=== PATIENT | female | born 1930 | race Caucasian/White ===

== ENCOUNTER 2018-01-25 17:01 | Emergency (ER) | payer MEDICARE, OTHER ==
--- NOTE | 2018-01-25 18:21 | EDM.PDOC ---
ED HPI GENERAL MEDICAL PROBLEM - General Chief Complaint: Respiratory Problem Stated Complaint: SOB Time Seen by Provider: 01/25/18 18:05 Source of Information: Reports: Patient, Family, Old Records History Limitations: Reports: No Limitations - History of Present Illness INITIAL COMMENTS - FREE TEXT/NARRATIVE: 87 yo female began with cough and chest congestion this past Sunday that has gotten worse since. No fever. Cough is non-productive. Has no hx of any lung dz. Did not try to get into the clinic for this. Had a CXR on Sunday of this week for other reasons. Here with family. Onset: Gradual Onset Date: 01/23/18 Duration: Day(s):, Getting Worse Location: Reports: Chest Quality: Reports: Other (no pain) Severity: Moderate Improves with: Reports: Rest Worsens with: Reports: Movement (or lying down) Context: Reports: Other (uncertain) Associated Symptoms: Reports: Cough, Shortness of Breath, Weakness. 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) - Related Data Allergies Allergy/AdvReac Type Severity Reaction Status Date / Time egg AdvReac Weakness Verified 01/25/18 17:06 gluten AdvReac Diarrhea Verified 01/25/18 17:06 Penicillins AdvReac Diarrhea Verified 01/25/18 17:06 Home Meds: Home Meds Digoxin [Lanoxin] 125 mcg PO DAILY 06/23/14 [History] Losartan Potassium 100 mg PO DAILY 06/23/14 [History] Nebivolol HCl [Bystolic] 40 mg PO DAILY 06/23/14 [History] Azithromycin [IJP: Azithromycin] 250 mg PO DAILY #4 tab 01/25/18 [Rx] Doxazosin Mesylate [Cardura] 16 mg PO DAILY 01/25/18 [History] Furosemide [Furosemide] 20 mg PO DAILY 01/25/18 [History] Latanoprost [Xalatan 0.005% Ophth Soln] 1 drop EYEBOTH BEDTIME 01/25/18 [History ] MV-Mn/Iron/FA/Herbal Cmplx#190 [Vitamin D3 Complete Caplet] 1 tab PO DAILY 01/25 [History] Mirabegron [Myrbetriq] 50 mg PO DAILY 01/25/18 [History] Spironolactone [Aldactone] 25 mg PO DAILY 01/25/18 [History] Vitamin E (Dl,Tocopheryl Acet) [Vitamin E] 200 unit PO DAILY 01/25/18 [History] Warfarin [Coumadin] 5 mg PO ASDIRECTED 01/25/18 [History] Warfarin [Coumadin] 7.5 mg PO ASDIRECTED 01/25/18 [History] amLODIPine Besylate [Amlodipine Besylate] 10 mg PO DAILY 01/25/18 [History] hydrALAZINE [Apresoline] 25 - 50 mg PO TID #30 tab 01/25/18 [Rx] Past Medical History HEENT History: Reports: Cataract, Glaucoma, Hard of Hearing Cardiovascular History: Reports: Afib, Heart Failure, Hypertension, SOB on Exertion Respiratory History: Reports: Pneumonia, Recurrent 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: - Infectious Disease History Infectious Disease History: Reports: Chicken Pox - Past Surgical History HEENT Surgical History: Reports: Cataract Surgery GI Surgical History: Reports: Colonoscopy Social & Family History - Tobacco Use Smoking Status *Q: Former Smoker Years of Tobacco use: 40 Used Tobacco, but Quit: Yes Month/Year Tobacco Last Used: 10 Second Hand Smoke Exposure: No - Caffeine Use Caffeine Use: Reports: Coffee - Alcohol Use Days Per Week of Alcohol Use: 0 - Recreational Drug Use Recreational Drug Use: No ED ROS GENERAL - Review of Systems Review Of Systems: See Below Constitutional: Reports: Weakness HEENT: Reports: No Symptoms Respiratory: Reports: Shortness of Breath, Cough, Sputum (rare). Denies: Wheezing, Pleuritic Chest Pain, Hemoptysis Cardiovascular: Reports: No Symptoms GI/Abdominal: Reports: No Symptoms : Reports: No Symptoms Musculoskeletal: Reports: No Symptoms Skin: Reports: No Symptoms Neurological: Reports: No Symptoms Psychiatric: Reports: No Symptoms ED EXAM, GENERAL - Physical Exam Exam: See Below Exam Limited By: No Limitations General Appearance: Alert, WD/WN, No Apparent Distress, Thin Eye Exam: Bilateral Eye: Normal Inspection Ears: Hearing Loss, Other (Bilateral hearing aids) Ear Exam: Bilateral Ear: Auricle Normal Nose: Normal Inspection, Normal Mucosa, No Blood Throat/Mouth: Normal Inspection, Normal Lips, Normal Teeth, Normal Oropharynx, Normal Voice, No Airway Compromise Head: Atraumatic, Normocephalic Neck: Normal Inspection, Supple, Non-Tender Respiratory/Chest: No Respiratory Distress, No Accessory Muscle Use, Rhonchi ( scattered). No: Decreased Breath Sounds, Wheezing, Accessory Muscle Use, Retractions, Splinting, Prolonged Expiration Cardiovascular: Regular Rate, Rhythm, No Edema GI/Abdominal: Normal Bowel Sounds, Soft, Non-Tender, No Distention Back Exam: Normal Inspection. No: CVA Tenderness (R), CVA Tenderness (L) Extremities: Normal Inspection, Normal Range of Motion, Non-Tender, Pedal Edema (trace pitting edema to both legs below the knees) Neurological: Alert, Oriented, CN II-XII Intact, Normal Cognition, No Motor/ Sensory Deficits Psychiatric: Normal Affect, Normal Mood Skin Exam: Warm, Dry, Intact, Normal Color, No Rash Course - Vital Signs Text/Narrative:: Is improved enough with tx here in the ER that she wants to go home. Discussed needs an ECHO and may benefit from home oxygen which can't be set up tonight. Last Recorded V/S: Last Vital Signs Temp 37.2 C 01/25/18 17:31 Pulse 77 01/25/18 20:10 Resp 20 01/25/18 17:31 BP 179/74 H 01/25/18 20:10 Pulse Ox 90 L 01/25/18 20:10 - Orders/Labs/Meds Orders: Active Orders 24 hr Category Date Time Status Chest 2V [CR] Stat Exams 01/25/18 18:15 Taken Labs: Laboratory Tests 01/25/18 01/25/18 01/25/18 Range/Units 18:24 18:24 18:24 WBC 9.7 (4.5-11.0) K/uL RBC 3.73 (3.30-5.50) M/uL Hgb 11.3 L (12.0-15.0) g/dL Hct 34.0 L (36.0-48.0) % MCV 91 (80-98) fL MCH 30 (27-31) pg MCHC 33 (32-36) % Plt Count 261 (150-400) K/uL PT 31.5 H (9.5-12.0) sec INR 2.82 H (0.80-1.20) Sodium 128 L (140-148) mmol/L Potassium 4.7 (3.6-5.2) mmol/L Chloride 93 L (100-108) mmol/L Carbon Dioxide 26 (21-32) mmol/L Anion Gap 13.7 (5.0-14.0) mmol/L BUN 14 (7-18) mg/dL Creatinine 0.8 (0.6-1.0) mg/dL Est Cr Clr Drug Dosing 41.97 mL/min Estimated GFR (MDRD) > 60 (>60) Glucose 112 H (74-106) mg/dL Calcium 8.6 (8.5-10.1) mg/dL C-Reactive Protein (0.0-0.3) mg/dL NT-Pro-B Natriuret Pep (5-450) pg/mL Urine Color Urine Appearance Urine pH (4.5-8.0) Ur Specific [place] (1.008-1.030) Urine Protein (NEGATIVE) mg/dL Urine Glucose (UA) (NEGATIVE) mg/dL Urine Ketones (NEGATIVE) mg/dL Urine Occult Blood (NEGATIVE) Urine Nitrite (NEGATIVE) Urine Bilirubin (NEGATIVE) Urine Urobilinogen (NORMAL) mg/dL Ur Leukocyte Esterase (NEGATIVE) Urine RBC (0-5) Urine WBC (0-5) Ur Epithelial Cells Amorphous Sediment Urine Bacteria Urine Mucus 01/25/18 01/25/18 01/25/18 Range/Units 18:53 18:55 19:26 WBC (4.5-11.0) K/uL RBC (3.30-5.50) M/uL Hgb (12.0-15.0) g/dL Hct (36.0-48.0) % MCV (80-98) fL MCH (27-31) pg MCHC (32-36) % Plt Count (150-400) K/uL PT (9.5-12.0) sec INR (0.80-1.20) Sodium (140-148) mmol/L Potassium (3.6-5.2) mmol/L Chloride (100-108) mmol/L Carbon Dioxide (21-32) mmol/L Anion Gap (5.0-14.0) mmol/L BUN (7-18) mg/dL Creatinine (0.6-1.0) mg/dL Est Cr Clr Drug Dosing mL/min Estimated GFR (MDRD) (>60) Glucose (74-106) mg/dL Calcium (8.5-10.1) mg/dL C-Reactive Protein 2.40 H (0.0-0.3) mg/dL NT-Pro-B Natriuret Pep 2424 H (5-450) pg/mL Urine Color Yellow Urine Appearance Clear Urine pH 5.0 (4.5-8.0) Ur Specific [place] 1.020 (1.008-1.030) Urine Protein 30 H (NEGATIVE) mg/dL Urine Glucose (UA) Normal (NEGATIVE) mg/dL Urine Ketones Negative (NEGATIVE) mg/dL Urine Occult Blood Negative (NEGATIVE) Urine Nitrite Negative (NEGATIVE) Urine Bilirubin Negative (NEGATIVE) Urine Urobilinogen Normal (NORMAL) mg/dL Ur Leukocyte Esterase Negative (NEGATIVE) Urine RBC 0-5 (0-5) Urine WBC 0-5 (0-5) Ur Epithelial Cells Rare Amorphous Sediment Not seen Urine Bacteria Not seen Urine Mucus Not seen Meds: Medications Discontinued Medications Generic Name Dose Route Start Last Admin Trade Name Freq PRN Reason Stop Dose Admin Azithromycin 500 mg 01/25/18 19:37 01/25/18 19:44 Zithromax PO 01/25/18 19:38 500 mg ONETIME ONE Administration Carvedilol 12.5 mg 01/25/18 18:59 01/25/18 19:11 Coreg PO 01/25/18 19:00 12.5 mg ONETIME ONE Administration Hydralazine HCl 25 mg 01/25/18 20:10 Apresoline PO 01/25/18 20:11 NOW STA Nitroglycerin 1 gm 01/25/18 18:57 01/25/18 19:10 Nitro-Bid 2% TOP 01/25/18 18:58 1 gm ONETIME ONE Administration - Radiology Interpretation Free Text/Narrative:: CXR-cardiomegaly, no significant change since 01/23/18. Departure - Departure Time of Disposition: 20:25 Disposition: Home, Self-Care 01 Condition: Fair Clinical Impression: Congestive heart failure Qualifiers: Heart failure type: systolic Heart failure chronicity: acute on chronic Qualified Code(s): I50.23 - Acute on chronic systolic (congestive) heart failure HTN (hypertension) Qualifiers: Hypertension type: essential hypertension Qualified Code(s): I10 - Essential ( primary) hypertension - Discharge Information Prescriptions: Azithromycin [IJP: Azithromycin] 250 mg PO DAILY #4 tab hydrALAZINE [Apresoline] 25 - 50 mg PO TID #30 tab Referrals: Waldo Barrientos Sr, MD [Primary Care Provider] - Forms: ED Department Discharge Additional Instructions: Add hydralazine 25 mg every 12 hrs for elevated BP. Continue your usual meds as before. If you BP remains over 160 systolic, then increase to every 8 hrs. Recheck with your doctor early next week, discuss need for an Echocardiogram. Avoid salt or salty foods. Take azithromycin as directed until gone for bronchitis. Return if worse in the interim. - My Orders Last 24 Hours: My Active Orders 01/25/18 18:15 Chest 2V [CR] Stat - Assessment/Plan Last 24 Hours: My Active Orders 01/25/18 18:15 Chest 2V [CR] Stat
[2018-01-25] MEDS ORDERED: Nitroglycerin 2% Oint 1 GM UD Packet TOP ONE (18:57)
[2018-01-25] MEDS ORDERED: Carvedilol 12.5 MG Tab PO ONE (18:59)
[2018-01-25] MEDS ORDERED: Azithromycin 250 MG Tab PO ONE (19:37)
[2018-01-25] MEDS ORDERED: hydrALAZINE 25 MG Tab PO STA (20:10)
--- NOTE | 2018-01-28 09:39 | CR ---
Moderate to advanced cardiomegaly stable. Lobulated right diaphragm. Emphysematous change. No focal c onsolidation. Blunting of the costophrenic angles indicating pleural thickening versus trace pleural effusions. Kyphosis of the thoracic spine with wedging of multiple vertebral bodies.
== END 2018-01-25 20:43 | disposition home or self-care (01) ==
LOC: JP.ED 17:01
DX: I11.0 Hypertensive heart disease with heart failure (principal); I50.23 Acute on chronic systolic (congestive) heart failure; Z91.012 Allergy to eggs; Z88.0 Allergy status to penicillin; Z79.899 Other long term (current) drug therapy; Z87.891 Personal history of nicotine dependence
CPT/HCPCS: 36415; 71046; 80048; 81001; 83880; 85027; 85610; 86140; 99285; A9270; 99284

== ENCOUNTER 2018-01-26 18:56 | Inpatient (IN) | payer MEDICARE, OTHER ==
[2018-01-26] MEDS ORDERED: Furosemide 40 MG/4 ML VIAL IVPUSH ONE (20:12)
[2018-01-26] MEDS ORDERED: Sodium Chloride 0.9% 10 ML Syringe FLUSH PRN (20:12)
--- NOTE | 2018-01-26 20:16 | EDM.PDOC ---
ED HPI GENERAL MEDICAL PROBLEM - General Chief Complaint: Respiratory Problem Stated Complaint: SHORTNESS OF BREATH Time Seen by Provider: 01/26/18 20:05 Source of Information: Reports: Patient, Old Records History Limitations: Reports: No Limitations - History of Present Illness INITIAL COMMENTS - FREE TEXT/NARRATIVE: 87 yo female was here last night for SOB secondary to CHF. Her BNP was elevated and her CXR showed stable cardiomegaly. She seemed last night to get some relief with nitrates and oxygen in the ER. She didn't want to stay over in the hospital yesterday and we were not able to send her home with oxygen. Today she is worse overall than she was yesterday and is willing to be admitted. She was sent home with an Rx for hydralazine which she has been taking and on return tonight her BP is improved. Onset: Gradual Onset Date: 01/23/18 Duration: Day(s):, Getting Worse Location: Reports: Chest Quality: Reports: Other (no pain) Severity: Moderate (SOB is her main complaint) Improves with: Reports: Rest Worsens with: Reports: Movement Context: Reports: Other (Has known CHF and is awaiting an outpatient ECHO) Associated Symptoms: Reports: Shortness of Breath. 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 ) chest discomfort Pain Score (Numeric/FACES): 5 Left Shoulder Pain Score (Numeric/FACES): 2 - Related Data Allergies Allergy/AdvReac Type Severity Reaction Status Date / Time egg AdvReac Weakness Verified 01/26/18 22:25 gluten AdvReac Diarrhea Verified 01/26/18 22:25 Penicillins AdvReac Diarrhea Verified 01/26/18 22:25 Home Meds: Home Meds Digoxin [Lanoxin] 125 mcg PO DAILY 06/23/14 [History] Losartan Potassium 100 mg PO DAILY 06/23/14 [History] Nebivolol HCl [Bystolic] 40 mg PO DAILY 06/23/14 [History] Azithromycin [IJP: Azithromycin] 250 mg PO DAILY #4 tab 01/25/18 [Rx] Doxazosin Mesylate [Cardura] 8 mg PO BID 01/25/18 [History] Furosemide [Furosemide] 20 mg PO DAILY 01/25/18 [History] Latanoprost [Xalatan 0.005% Ophth Soln] 1 drop EYEBOTH BEDTIME 01/25/18 [History ] MV-Mn/Iron/FA/Herbal Cmplx#190 [Vitamin D3 Complete Caplet] 1 tab PO DAILY 01/25 [History] Mirabegron [Myrbetriq] 50 mg PO DAILY 01/25/18 [History] Vitamin E (Dl,Tocopheryl Acet) [Vitamin E] 200 unit PO DAILY 01/25/18 [History] Warfarin [Coumadin] 5 mg PO ASDIRECTED 01/25/18 [History] Warfarin [Coumadin] 7.5 mg PO ASDIRECTED 01/25/18 [History] amLODIPine Besylate [Amlodipine Besylate] 10 mg PO DAILY 01/25/18 [History] hydrALAZINE [Apresoline] 25 - 50 mg PO TID #30 tab 01/25/18 [Rx] Carvedilol [Carvedilol] 3.125 mg PO DAILY 01/26/18 [History] Spironolactone [Aldactone] 25 mg PO DAILY 01/26/18 [History] Past Medical History HEENT History: Reports: Cataract, Glaucoma, Hard of Hearing Cardiovascular History: Reports: Afib, Heart Failure, Hypertension, SOB on Exertion Respiratory History: Reports: Pneumonia, 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: - Infectious Disease History Infectious Disease History: Reports: Chicken Pox - Past Surgical History HEENT Surgical History: Reports: Cataract Surgery GI Surgical History: Reports: Colonoscopy Social & Family History - Tobacco Use Smoking Status *Q: Never Smoker Years of Tobacco use: 40 Used Tobacco, but Quit: Yes Month/Year Tobacco Last Used: 10 Second Hand Smoke Exposure: No - Caffeine Use Caffeine Use: Reports: Coffee - Alcohol Use Days Per Week of Alcohol Use: 0 - Recreational Drug Use Recreational Drug Use: No ED ROS GENERAL - Review of Systems Review Of Systems: See Below Constitutional: Reports: Weakness HEENT: Reports: No Symptoms Respiratory: Reports: Shortness of Breath. Denies: Hemoptysis Cardiovascular: Reports: No Symptoms Endocrine: Reports: No Symptoms GI/Abdominal: Reports: No Symptoms : Reports: No Symptoms Musculoskeletal: Reports: No Symptoms Skin: Reports: No Symptoms Neurological: Reports: No Symptoms ED EXAM, GENERAL - Physical Exam Exam: See Below Exam Limited By: No Limitations General Appearance: Alert, WD/WN, Mild Distress Eye Exam: Bilateral Eye: Normal Inspection, Other (Is mostly blind bilat) Ears: Normal External Exam, Normal Canal, Hearing Grossly Normal, Hearing Loss Ear Exam: Bilateral Ear: Auricle Normal, Canal Normal Nose: Normal Inspection, Normal Mucosa, No Blood Throat/Mouth: Normal Inspection, Normal Lips, Normal Oropharynx, Normal Voice, No Airway Compromise Head: Atraumatic, Normocephalic Neck: Normal Inspection, Supple, Non-Tender Respiratory/Chest: Rales, Wheezing Cardiovascular: Regular Rate, Rhythm GI/Abdominal: Normal Bowel Sounds, Soft, Non-Tender, No Distention Back Exam: Normal Inspection Extremities: Pedal Edema Neurological: Alert, Oriented, CN II-XII Intact, Normal Cognition, No Motor/ Sensory Deficits Psychiatric: Normal Affect, Normal Mood Skin Exam: Warm, Dry, Intact, Normal Color, No Rash Lymphatic: No Adenopathy Course - Vital Signs Text/Narrative:: Feeling a lot better with the addition of oxygen. BP better tonight than last night after the addition of the hydralazine. Last Recorded V/S: Last Vital Signs Temp 36.7 C 01/26/18 19:28 Pulse 54 L 01/27/18 01:03 Resp 20 01/26/18 22:54 BP 138/72 01/27/18 01:03 Pulse Ox 85 L 01/26/18 22:54 - Orders/Labs/Meds Orders: Active Orders 24 hr Category Date Time Status Chest 1V Frontal [CR] Stat Exams 01/26/18 20:11 Taken Sodium Chloride 0.9% [Saline Flush] Med 01/26/18 20:12 Active 10 ml FLUSH ASDIRECTED PRN Saline Lock Insert [OM.PC] Routine Oth 01/26/18 20:12 Ordered Medication Orders Amlodipine Besylate (Norvasc) 5 mg PO DAILY [facility] Azithromycin (Zithromax) 250 mg PO QPM [facility] Carvedilol (Coreg) 1.5625 mg PO BIDMEALS [facility] Digoxin (Lanoxin) 125 mcg PO DAILY [facility] Doxazosin Mesylate (Cardura) 8 mg PO BID [facility] Furosemide (Lasix) 20 mg PO DAILY [facility] Hydralazine HCl (Apresoline) 25 mg PO TID [facility] Losartan Potassium (Cozaar) 100 mg PO DAILY [facility] Mirabegron (Myrbetriq) 50 mg PO DAILY [facility] Non-Formulary Medication (Warfarin [Coumadin]) 7.5 mg PO ASDIRECTED [facility] Sodium Chloride (Saline Flush) 10 ml FLUSH ASDIRECTED PRN PRN Reason: Keep Vein Open Last Admin: 01/26/18 20:52 Dose: 10 ml Spironolactone (Aldactone) 25 mg PO DAILY [facility] Warfarin Sodium (Coumadin) 5 mg PO ASDIRECTED [facility] Labs: Laboratory Tests 01/26/18 01/26/18 Range/Units 20:29 20:29 WBC 9.3 (4.5-11.0) K/uL RBC 3.65 (3.30-5.50) M/uL Hgb 11.3 L (12.0-15.0) g/dL Hct 33.2 L (36.0-48.0) % MCV 91 (80-98) fL MCH 31 (27-31) pg MCHC 34 (32-36) % Plt Count 253 (150-400) K/uL Sodium 127 L (140-148) mmol/L Potassium 4.6 (3.6-5.2) mmol/L Chloride 93 L (100-108) mmol/L Carbon Dioxide 24 (21-32) mmol/L Anion Gap 14.6 H (5.0-14.0) mmol/L BUN 20 H (7-18) mg/dL Creatinine 0.7 (0.6-1.0) mg/dL Est Cr Clr Drug Dosing 49.72 mL/min Estimated GFR (MDRD) > 60 (>60) Glucose 130 H (74-106) mg/dL Calcium 8.6 (8.5-10.1) mg/dL Troponin I < 0.017 (0.000-0.056) ng/mL Meds: Medications Generic Name Dose Route Start Last Admin Trade Name Freq PRN Reason Stop Dose Admin Amlodipine Besylate 5 mg 01/27/18 09:00 Norvasc PO DAILY [facility] Azithromycin 250 mg 01/27/18 17:00 Zithromax PO QPM [facility] Carvedilol 1.5625 mg 01/27/18 08:00 Coreg PO BIDMEALS [facility] Digoxin 125 mcg 01/27/18 09:00 Lanoxin PO DAILY [facility] Doxazosin Mesylate 8 mg 01/27/18 09:00 Cardura PO BID [facility] Furosemide 20 mg 01/27/18 09:00 Lasix PO DAILY [facility] Hydralazine HCl 25 mg 01/27/18 09:00 Apresoline PO TID [facility] Losartan Potassium 100 mg 01/27/18 09:00 Cozaar PO DAILY [facility] Mirabegron 50 mg 01/27/18 09:00 Myrbetriq PO DAILY [facility] Non-Formulary Medication 7.5 mg 01/26/18 23:00 Warfarin [Coumadin] PO ASDIRECTED [facility] Sodium Chloride 10 ml 01/26/18 20:12 01/26/18 20:52 Saline Flush FLUSH 10 ml ASDIRECTED PRN Administration Keep Vein Open Spironolactone 25 mg 01/27/18 09:00 Aldactone PO DAILY [facility] Warfarin Sodium 5 mg 01/26/18 23:00 Coumadin PO ASDIRECTED [facility] Discontinued Medications Generic Name Dose Route Start Last Admin Trade Name Freq PRN Reason Stop Dose Admin Carvedilol 3.125 mg 01/26/18 23:00 Coreg PO DAILY IV[facility] Carvedilol 0 mg 01/27/18 01:00 01/27/18 01:03 Coreg PO 01/27/18 01:01 1.562 mg ONETIME ONE Administration Furosemide 40 mg 01/26/18 20:12 01/26/18 20:42 Lasix IVPUSH 01/26/18 20:13 40 mg ONETIME ONE Administration - Radiology Interpretation Free Text/Narrative:: CXR-no significant interval change since yesterday. Departure - Departure Time of Disposition: 23:40 Disposition: Admitted As Inpatient 65 Condition: Fair Clinical Impression: Hypoxia, Hyponatremia Congestive heart failure (CHF) Qualifiers: Heart failure type: systolic Heart failure chronicity: acute on chronic Qualified Code(s): I50.23 - Acute on chronic systolic (congestive) heart failure Anemia Qualifiers: Anemia type: unspecified type Qualified Code(s): D64.9 - Anemia, unspecified - Discharge Information - My Orders Last 24 Hours: My Active Orders 01/26/18 20:11 Chest 1V Frontal [CR] Stat 01/26/18 20:12 Sodium Chloride 0.9% [Saline Flush] 10 ml FLUSH ASDIRECTED PRN Saline Lock Insert [OM.PC] Routine - Assessment/Plan Last 24 Hours: My Active Orders 01/26/18 20:11 Chest 1V Frontal [CR] Stat 01/26/18 20:12 Sodium Chloride 0.9% [Saline Flush] 10 ml FLUSH ASDIRECTED PRN Saline Lock Insert [OM.PC] Routine
[2018-01-26] MEDS ORDERED: Non-Formulary Medication 1 Each (Warfarin [Coumadin] 7.5 MG) PO SCH (23:00)
[2018-01-26] MEDS ORDERED: Carvedilol 3.125 MG Tab PO SCH (23:00)
--- NOTE | 2018-01-26 23:14 | PCM.HP ---
H&P History of Present Illness - General Date of Service: 01/26/18 Admit Problem/Dx: Admission Diagnosis/Problem Admission Diagnosis/Problem CHF, Congestive heart failure Source of Information: Patient, EMS Notes Reviewed, Family History Limitations: Reports: Respiratory Distress, Other (coughing) - History of Present Illness Initial Comments - Free Text/Narative: Begun having a cough and rattling in her chest 4 days ago and had shortness of breath which became worse when laying down. Said she felt better when sitting up in a chair. Onset of Symptoms: Reports: Gradual Associated Symptoms: Reports: Chest Pain, Cough, Weakness chest discomfort Pain Score (Numeric/FACES): 5 - Related Data Allergies/Adverse Reactions: Allergies Allergy/AdvReac Type Severity Reaction Status Date / Time egg AdvReac Weakness Verified 01/26/18 22:25 gluten AdvReac Diarrhea Verified 01/26/18 22:25 Penicillins AdvReac Diarrhea Verified 01/26/18 22:25 Home Medications: Home Meds Digoxin [Lanoxin] 125 mcg PO DAILY 06/23/14 [History] Losartan Potassium 100 mg PO DAILY 06/23/14 [History] Nebivolol HCl [Bystolic] 40 mg PO DAILY 06/23/14 [History] Azithromycin [IJP: Azithromycin] 250 mg PO DAILY #4 tab 01/25/18 [Rx] Doxazosin Mesylate [Cardura] 8 mg PO BID 01/25/18 [History] Furosemide [Furosemide] 20 mg PO DAILY 01/25/18 [History] Latanoprost [Xalatan 0.005% Oph Soln] 1 drop EYEBOTH BEDTIME 01/25/18 [History ] MV-Mn/Iron/FA/Herbal Cmplx#[id number] [Vitamin D3 Complete Caplet] 1 tab PO DAILY 01/25 [History] Mirabegron [Myrbetriq] 50 mg PO DAILY 01/25/18 [History] Vitamin E (Dl,Tocopheryl Acet) [Vitamin E] 200 unit PO DAILY 01/25/18 [History] Warfarin [Coumadin] 5 mg PO ASDIRECTED 01/25/18 [History] Warfarin [Coumadin] 7.5 mg PO ASDIRECTED 01/25/18 [History] amLODIPine Besylate [Amlodipine Besylate] 10 mg PO DAILY 01/25/18 [History] hydrALAZINE [Apresoline] 25 - 50 mg PO TID #30 tab 01/25/18 [Rx] Carvedilol [Carvedilol] 3.125 mg PO DAILY 01/26/18 [History] Spironolactone [Aldactone] 25 mg PO DAILY 01/26/18 [History] Past Medical History HEENT History: Reports: Cataract, Glaucoma, Hard of Hearing Cardiovascular History: Reports: Afib, Heart Failure, Hypertension, SOB on Exertion Respiratory History: Reports: Pneumonia, Recurrent [employer] History: Reports: - Infectious Disease History Infectious Disease History: Reports: Chicken Pox - Past Surgical History HEENT Surgical History: Reports: Cataract Surgery GI Surgical History: Reports: Colonoscopy Social & Family History - Tobacco Use Smoking Status *Q: Never Smoker Years of Tobacco use: 40 Used Tobacco, but Quit: Yes Month/Year Tobacco Last Used: 10 Second Hand Smoke Exposure: No - Caffeine Use Caffeine Use: Reports: Coffee - Alcohol Use Days Per Week of Alcohol Use: 0 - Recreational Drug Use Recreational Drug Use: No H&P Review of Systems - Review of Systems: Review Of Systems: See Below General: Reports: Weakness, Decreased Appetite HEENT: Reports: No Symptoms Pulmonary: Reports: Shortness of Breath, Wheezing Cardiovascular: Reports: Dyspnea on Exertion, Orthopnea Gastrointestinal: Reports: No Symptoms Genitourinary: Reports: Frequency, Incontinence Musculoskeletal: Reports: No Symptoms Psychiatric: Reports: No Symptoms Neurological: Reports: Weakness Exam - Exam Exam: See Below - Vital Signs Vital Signs: Last Vital Signs Temp 98.1 F 01/26/18 19:28 Pulse 60 01/26/18 22:27 Resp 16 01/26/18 22:27 BP 128/86 01/26/18 22:27 Pulse Ox 95 01/26/18 22:27 Weight: 125 lb - Exam General: Alert, Oriented, 4 Neck: Supple, Trachea Midline, 2 Lungs: Clear to Auscultation, Normal Respiratory Effort Cardiovascular: Regular Rate, Regular Rhythm GI/Abdominal Exam: Normal Bowel Sounds, Soft, Non-Tender, No Organomegaly, No Distention, No Abnormal Bruit, No Mass, Pelvis Stable Extremities: Normal Inspection, Normal Range of Motion, Non-Tender, No Pedal Edema, Normal Capillary Refill Skin: Warm, Dry, Intact Neuro Extensive - Motor, Sensory, Reflexes: CN II-XII Intact, Normal Gait, Normal Reflexes Psychiatric: Alert, Normal Affect, Normal Mood - Patient Data Lab Results Last 24 hrs: Laboratory Results - last 24 hr 01/26/18 01/26/18 Range/Units 20:29 20:29 WBC 9.3 (4.5-11.0) K/uL RBC 3.65 (3.30-5.50) M/uL Hgb 11.3 L (12.0-15.0) g/dL Hct 33.2 L (36.0-48.0) % MCV 91 (80-98) fL MCH 31 (27-31) pg MCHC 34 (32-36) % Plt Count 253 (150-400) K/uL Sodium 127 L (140-148) mmol/L Potassium 4.6 (3.6-5.2) mmol/L Chloride 93 L (100-108) mmol/L Carbon Dioxide 24 (21-32) mmol/L Anion Gap 14.6 H (5.0-14.0) mmol/L BUN 20 H (7-18) mg/dL Creatinine 0.7 (0.6-1.0) mg/dL Est Cr Clr Drug Dosing 49.72 mL/min Estimated GFR (MDRD) > 60 (>60) Glucose 130 H (74-106) mg/dL Calcium 8.6 (8.5-10.1) mg/dL Troponin I < 0.017 (0.000-0.056) ng/mL Result Diagrams: 01/26/18 20:29 01/26/18 20:29 *Q Meaningful Use (ADM) - VTE *Q VTE Criteria *Q: - Stroke *Q Stroke Criteria *Q: - AMI *Q AMI Criteria *Q: Problem List Initiated/Reviewed/Updated: Yes Orders Last 24hrs: Active Orders 24 hr Category Date Time Status Patient Status [ADT] Routine ADT 01/26/18 22:54 Ordered Cardiac Monitoring [RC] .As Directed Care 01/26/18 20:13 Active Cardiac Monitoring [RC] .As Directed Care 01/26/18 22:55 Ordered Height and Weight [RC] DAILY Care 01/26/18 22:48 Ordered Intake and Output [RC] QSHIFT Care 01/26/18 22:55 Ordered Oxygen Therapy Adult [Oxygen Therapy, ED] [RC] Care 01/26/18 20:13 Active ASDIRECTED Oxygen Therapy [RC] PRN Care 01/26/18 22:54 Ordered Up With Assistance [RC] ASDIRECTED Care 01/26/18 22:48 Ordered VTE/DVT Education [RC] Per Unit Routine Care 01/26/18 22:54 Ordered Vital Signs [RC] Q4H Care 01/26/18 22:54 Ordered Regular Diet [DIET] Diet 01/27/18 Breakfast Ordered Chest 1V Frontal [CR] Stat Exams 01/26/18 20:11 Taken Echo Comp w Cont [US] Routine Exams 01/28/18 23:02 Ordered BASIC METABOLIC PANEL,BMP [CHEM] Routine Lab 01/28/18 05:11 Ordered CBC WITH AUTO DIFF [HEME] Routine Lab 01/28/18 05:11 Ordered DIGOXIN [CHEM] Stat Lab 01/28/18 05:11 Ordered INR,PT,PROTHROMBIN TIME [COAG] Stat Lab 01/27/18 05:11 Ordered Azithromycin [Zithromax] Med 01/27/18 09:00 Ordered 250 mg PO DAILY Carvedilol [Coreg] Med 01/26/18 23:00 Ordered 3.125 mg PO DAILY Digoxin [Lanoxin] Med 01/27/18 09:00 Ordered 125 mcg PO DAILY Doxazosin Mesylate [Cardura] Med 01/27/18 09:00 Ordered 8 mg PO BID Furosemide [Lasix] Med 01/27/18 09:00 Ordered 20 mg PO DAILY Losartan Potassium [Losartan Potassium] Med 01/27/18 09:00 Ordered 100 mg PO DAILY Mirabegron [Myrbetriq] Med 01/27/18 09:00 Ordered 50 mg PO DAILY Sodium Chloride 0.9% [Saline Flush] Med 01/26/18 20:12 Active 10 ml FLUSH ASDIRECTED PRN Spironolactone [Aldactone] Med 01/27/18 09:00 Ordered 25 mg PO DAILY Warfarin [Coumadin] Med 01/26/18 23:00 Ordered 5 mg PO ASDIRECTED Warfarin [Coumadin] Med 01/26/18 23:00 Ordered 7.5 mg PO ASDIRECTED amLODIPine [Norvasc] Med 01/27/18 09:00 Ordered 5 mg PO DAILY hydrALAZINE [Apresoline] Med 01/27/18 09:00 Ordered 25 mg PO TID Saline Lock Insert [OM.PC] Routine Oth 01/26/18 20:12 Ordered Resuscitation Status Routine Resus Stat 01/26/18 22:48 Ordered Medication Orders Amlodipine Besylate (Norvasc) 5 mg PO DAILY [facility] Azithromycin (Zithromax) 250 mg PO DAILY [facility] Carvedilol (Coreg) 3.125 mg PO DAILY [facility] Digoxin (Lanoxin) 125 mcg PO DAILY [facility] Furosemide (Lasix) 20 mg PO DAILY [facility] Hydralazine HCl (Apresoline) 25 mg PO TID [facility] Non-Formulary Medication (Doxazosin Mesylate [Cardura]) 8 mg PO BID [facility] Non-Formulary Medication (Losartan Potassium [Losartan Potassium]) 100 mg PO DAILY [facility] Non-Formulary Medication (Mirabegron [Myrbetriq]) 50 mg PO DAILY [facility] Non-Formulary Medication (Warfarin [Coumadin]) 7.5 mg PO ASDIRECTED [facility] Sodium Chloride (Saline Flush) 10 ml FLUSH ASDIRECTED PRN PRN Reason: Keep Vein Open Last Admin: 01/26/18 20:52 Dose: 10 ml Spironolactone (Aldactone) 25 mg PO DAILY [facility] Warfarin Sodium (Coumadin) 5 mg PO ASDIRECTED [facility] Assessment/Plan Comment:: Assessment/Plan: #1. CHF: Will continue with med adjustment and get a echocardiogram Sunday to asses heart failure. #2. HTN: Will continue with med adjustment. #3. Blindness #4. Urinary incontance: Cont with med. #5. Atrial fib, Chronic.
[2018-01-27] MEDS ORDERED: Carvedilol 3.125 MG Tab PO ONE (01:00)
[2018-01-27] MEDS: Carvedilol 3.125 MG Tab PO SCH ×2 (09:48→16:46)
[2018-01-27] MEDS: Spironolactone 25 MG Tab PO SCH (09:50)
[2018-01-27] MEDS: Doxazosin 4 MG Tab PO SCH ×2 (09:51→20:22)
[2018-01-27] MEDS: hydrALAZINE 25 MG Tab PO SCH ×3 (09:51→20:23)
[2018-01-27] MEDS: Furosemide 20 MG Tab PO SCH (09:52)
[2018-01-27] MEDS: Mirabegron 25 MG Tab Extended Release PO SCH (09:52)
[2018-01-27] MEDS: Losartan 50 MG Tab PO SCH (09:52)
[2018-01-27] MEDS: amLODIPine 5 MG Tab PO SCH (09:53)
[2018-01-27] MEDS ORDERED: Albuterol 0.083% 2.5 MG/3 ML Neb Soln NEB PRN (10:21)
[2018-01-27] MEDS ORDERED: Warfarin 2.5 MG Tab PO SCH (13:00)
[2018-01-27] MEDS: Azithromycin 250 MG Tab PO SCH (16:46)
--- NOTE | 2018-01-27 21:02 | PCM.PN ---
- General Info Date of Service: 01/27/18 Functional Status: Reports: Pain Controlled - Review of Systems General: Reports: Weakness HEENT: Reports: No Symptoms Pulmonary: Reports: No Symptoms Cardiovascular: Reports: Dyspnea on Exertion Genitourinary: Reports: No Symptoms Musculoskeletal: Reports: No Symptoms Skin: Reports: No Symptoms Neurological: Reports: No Symptoms Psychiatric: Reports: No Symptoms - Patient Data Vitals - Most Recent: Last Vital Signs Temp 98 F 01/27/18 19:00 Pulse 61 01/27/18 19:00 Resp 16 01/27/18 19:00 BP 139/43 L 01/27/18 20:23 Pulse Ox 96 01/27/18 19:00 Weight - Most Recent: 125 lb I&O - Last 24 Hours: Intake & Output 01/27/18 01/27/18 01/27/18 06:59 14:59 22:59 Intake Total 486 Output Total 300 175 Balance -300 311 Lab Results Last 24 Hours: Laboratory Results - last 24 hr 01/27/18 Range/Units 05:30 PT 55.9 H (9.5-12.0) sec INR 4.89 H* D (0.80-1.20) Med Orders - Current: Current Medications Albuterol (Proventil Neb Soln) 2.5 mg NEB Q4H PRN PRN Reason: Shortness of Breath Last Admin: 01/27/18 10:44 Dose: 2.5 mg Amlodipine Besylate (Norvasc) 5 mg PO DAILY [facility] Last Admin: 01/27/18 09:53 Dose: 5 mg Azithromycin (Zithromax) 250 mg PO QPM [facility] Stop: 01/29/18 17:01 Last Admin: 01/27/18 16:46 Dose: 250 mg Carvedilol (Coreg) 1.5625 mg PO BIDMEALS [facility] Last Admin: 01/27/18 16:46 Dose: 1.5625 mg Digoxin (Lanoxin) 125 mcg PO DAILY@1300 [facility] Doxazosin Mesylate (Cardura) 8 mg PO BID [facility] Last Admin: 01/27/18 20:22 Dose: 8 mg Furosemide (Lasix) 20 mg PO DAILY [facility] Last Admin: 01/27/18 09:52 Dose: 20 mg Hydralazine HCl (Apresoline) 25 mg PO TID [facility] Last Admin: 01/27/18 20:23 Dose: 25 mg Losartan Potassium (Cozaar) 100 mg PO DAILY [facility] Last Admin: 01/27/18 09:52 Dose: 100 mg Mirabegron (Myrbetriq) 50 mg PO DAILY [facility] Last Admin: 01/27/18 09:52 Dose: 50 mg Sodium Chloride (Saline Flush) 10 ml FLUSH ASDIRECTED PRN PRN Reason: Keep Vein Open Last Admin: 01/26/18 20:52 Dose: 10 ml Spironolactone (Aldactone) 25 mg PO DAILY [facility] Last Admin: 01/27/18 09:50 Dose: 25 mg Warfarin Sodium (Coumadin) 5 mg PO Q72H [facility] Warfarin Sodium (Coumadin) 7.5 mg PO DAILY@1300 [facility] Discontinued Medications Carvedilol (Coreg) 3.125 mg PO DAILY [facility] Last Admin: 01/27/18 01:48 Dose: Not Given Carvedilol (Coreg) 0 mg PO ONETIME ONE Stop: 01/27/18 01:01 Last Admin: 01/27/18 01:03 Dose: 1.562 mg Furosemide (Lasix) 40 mg IVPUSH ONETIME ONE Stop: 01/26/18 20:13 Last Admin: 01/26/18 20:42 Dose: 40 mg - Exam General: Alert, Oriented Neck: Supple Lungs: Normal Respiratory Effort Cardiovascular: Irregular Rhythm GI/Abdominal Exam: Normal Bowel Sounds, Soft Extremities: Normal Inspection Peripheral Pulses: 1+: Radial (L), Radial (R) Psy/Mental Status: Alert, Normal Affect, Normal Mood - Problem List Review Problem List Initiated/Reviewed/Updated: Yes - My Orders Last 24 Hours: My Active Orders 01/26/18 23:29 Physical Therapy Screening [PT Screening] [OM.PC] Routine 01/27/18 08:00 Carvedilol [Coreg] 1.5625 mg PO BIDMEALS 01/27/18 09:00 Doxazosin [Cardura] 8 mg PO BID Furosemide [Lasix] 20 mg PO DAILY Losartan [Cozaar] 100 mg PO DAILY Mirabegron [Myrbetriq] 50 mg PO DAILY Spironolactone [Aldactone] 25 mg PO DAILY amLODIPine [Norvasc] 5 mg PO DAILY hydrALAZINE [Apresoline] 25 mg PO TID 01/27/18 10:21 RT Aerosol Therapy [RC] ASDIRECTED Albuterol [Proventil Neb Soln] 2.5 mg NEB Q4H PRN 01/27/18 13:00 Digoxin [Lanoxin] 125 mcg PO DAILY@1300 Warfarin [Coumadin] 7.5 mg PO DAILY@1300 01/27/18 17:00 Azithromycin [Zithromax] 250 mg PO QPM 01/28/18 05:00 INR,PT,PROTHROMBIN TIME [COAG] Routine 01/28/18 05:11 BASIC METABOLIC PANEL,BMP [CHEM] Routine CBC WITH AUTO DIFF [HEME] Routine DIGOXIN [CHEM] Stat 01/28/18 23:02 Echo Comp w Cont [US] Routine 01/29/18 13:00 Warfarin [Coumadin] 5 mg PO Q72H - Plan Plan:: Assessment/Plan: #1. CHF: Will continue with med adjustment and get a echocardiogram tomorrow to asses heart failure. Held the Dig today as the pulse was low. PT evaluation tomorrow. Blood pending tomorrow. #2. HTN: Will continue with med adjustment. BP good control. #3. Blindness #4. Urinary incontance: Cont with med. #5. Atrial fib, Chronic.
[2018-01-28] MEDS: hydrALAZINE 25 MG Tab PO SCH ×3 (08:54→20:58)
[2018-01-28] MEDS: amLODIPine 5 MG Tab PO SCH (08:54)
[2018-01-28] MEDS: Losartan 50 MG Tab PO SCH (08:54)
[2018-01-28] MEDS: Spironolactone 25 MG Tab PO SCH (08:55)
[2018-01-28] MEDS: Doxazosin 4 MG Tab PO SCH ×2 (08:55→21:00)
[2018-01-28] MEDS: Mirabegron 25 MG Tab Extended Release PO SCH (08:55)
[2018-01-28] MEDS: Carvedilol 3.125 MG Tab PO SCH (08:56)
[2018-01-28] MEDS: Furosemide 20 MG Tab PO SCH (08:56)
--- NOTE | 2018-01-28 09:40 | CR ---
Cardiomegaly stable. Mild increase of interstitial thickening can indicate interstitial edema. Hospit al trace pleural effusion the left. No focal consolidation.
[2018-01-28] MEDS: Digoxin 125 MCG Tab PO SCH (15:06)
[2018-01-28] MEDS ORDERED: Furosemide 20 MG Tab PO ONE (16:00)
--- NOTE | 2018-01-28 17:45 | PCM.PN ---
- General Info Date of Service: 01/28/18 - Review of Systems General: Reports: Weakness, Fatigue Pulmonary: Reports: Shortness of Breath, Cough, Sputum Cardiovascular: Reports: No Symptoms Gastrointestinal: Reports: No Symptoms Genitourinary: Reports: No Symptoms Musculoskeletal: Reports: No Symptoms Skin: Reports: No Symptoms Neurological: Reports: Difficulty Walking, Weakness Psychiatric: Reports: No Symptoms - Patient Data Vitals - Most Recent: Last Vital Signs Temp 97.1 F 01/28/18 14:24 Pulse 75 01/28/18 14:24 Resp 20 01/28/18 14:24 BP 124/48 L 01/28/18 14:24 Pulse Ox 95 01/28/18 14:24 Weight - Most Recent: 127 lb 13.89 oz I&O - Last 24 Hours: Intake & Output 01/28/18 01/28/18 01/28/18 06:59 14:59 22:59 Output Total 500 400 Balance -500 -400 Lab Results Last 24 Hours: Laboratory Results - last 24 hr 01/28/18 01/28/18 01/28/18 Range/Units 05:45 05:45 05:45 WBC 7.3 (4.5-11.0) K/uL RBC 3.52 (3.30-5.50) M/uL Hgb 10.8 L (12.0-15.0) g/dL Hct 31.9 L (36.0-48.0) % MCV 91 (80-98) fL MCH 31 (27-31) pg MCHC 34 (32-36) % Plt Count 244 (150-400) K/uL Neut % (Auto) 69 H (36-66) % Lymph % (Auto) 18 L (24-44) % Glynn % (Auto) 12 H (2-6) % Eos % (Auto) 0 L (2-4) % Baso % (Auto) 0 (0-1) % PT (9.5-12.0) sec INR (0.80-1.20) Sodium 130 L (140-148) mmol/L Potassium 4.3 (3.6-5.2) mmol/L Chloride 96 L (100-108) mmol/L Carbon Dioxide 27 (21-32) mmol/L Anion Gap 11.3 (5.0-14.0) mmol/L BUN 19 H (7-18) mg/dL Creatinine 0.8 (0.6-1.0) mg/dL Est Cr Clr Drug Dosing 43.67 mL/min Estimated GFR (MDRD) > 60 (>60) Glucose 93 (74-106) mg/dL Calcium 8.0 L (8.5-10.1) mg/dL Digoxin 0.61 L (0.90-2.00) ng/mL 01/28/18 Range/Units 05:45 WBC (4.5-11.0) K/uL RBC (3.30-5.50) M/uL Hgb (12.0-15.0) g/dL Hct (36.0-48.0) % MCV (80-98) fL MCH (27-31) pg MCHC (32-36) % Plt Count (150-400) K/uL Neut % (Auto) (36-66) % Lymph % (Auto) (24-44) % Glynn % (Auto) (2-6) % Eos % (Auto) (2-4) % Baso % (Auto) (0-1) % PT 45.3 H (9.5-12.0) sec INR 4.00 H (0.80-1.20) Sodium (140-148) mmol/L Potassium (3.6-5.2) mmol/L Chloride (100-108) mmol/L Carbon Dioxide (21-32) mmol/L Anion Gap (5.0-14.0) mmol/L BUN (7-18) mg/dL Creatinine (0.6-1.0) mg/dL Est Cr Clr Drug Dosing mL/min Estimated GFR (MDRD) (>60) Glucose (74-106) mg/dL Calcium (8.5-10.1) mg/dL Digoxin (0.90-2.00) ng/mL Med Orders - Current: Current Medications Albuterol (Proventil Neb Soln) 2.5 mg NEB Q4H PRN PRN Reason: Shortness of Breath Last Admin: 01/27/18 10:44 Dose: 2.5 mg Amlodipine Besylate (Norvasc) 5 mg PO DAILY [facility] Last Admin: 01/28/18 08:54 Dose: 5 mg Digoxin (Lanoxin) 125 mcg PO DAILY@1300 [facility] Last Admin: 01/28/18 15:06 Dose: Not Given Doxazosin Mesylate (Cardura) 8 mg PO BID [facility] Last Admin: 01/28/18 08:55 Dose: 8 mg Furosemide (Lasix) 20 mg PO DAILY [facility] Last Admin: 01/28/18 08:56 Dose: 20 mg Hydralazine HCl (Apresoline) 25 mg PO TID [facility] Last Admin: 01/28/18 15:23 Dose: Not Given Levofloxacin/Dextrose 500 mg/ (Premix) 100 mls @ 100 mls/hr IV Q24H [facility] Ceftriaxone Sodium 1 gm/ (Sodium Chloride) 50 mls @ 100 mls/hr IV Q24H [facility] Losartan Potassium (Cozaar) 100 mg PO DAILY [facility] Last Admin: 01/28/18 08:54 Dose: 100 mg Mirabegron (Myrbetriq) 50 mg PO DAILY [facility] Last Admin: 01/28/18 08:55 Dose: 50 mg Sodium Chloride (Saline Flush) 10 ml FLUSH ASDIRECTED PRN PRN Reason: Keep Vein Open Last Admin: 01/26/18 20:52 Dose: 10 ml Spironolactone (Aldactone) 25 mg PO DAILY [facility] Last Admin: 01/28/18 08:55 Dose: 25 mg Warfarin Sodium (Coumadin) 5 mg PO Q72H [facility] Warfarin Sodium (Coumadin) 7.5 mg PO DAILY@1300 [facility] Discontinued Medications Azithromycin (Zithromax) 250 mg PO QPM [facility] Stop: 01/29/18 17:01 Last Admin: 01/27/18 16:46 Dose: 250 mg Carvedilol (Coreg) 3.125 mg PO DAILY [facility] Last Admin: 01/27/18 01:48 Dose: Not Given Carvedilol (Coreg) 0 mg PO ONETIME ONE Stop: 01/27/18 01:01 Last Admin: 01/27/18 01:03 Dose: 1.562 mg Carvedilol (Coreg) 1.5625 mg PO BIDMEALS [facility] Last Admin: 01/28/18 08:56 Dose: 1.5625 mg Furosemide (Lasix) 40 mg IVPUSH ONETIME ONE Stop: 01/26/18 20:13 Last Admin: 01/26/18 20:42 Dose: 40 mg Furosemide (Lasix) 20 mg PO ONETIME ONE Stop: 01/28/18 16:01 Last Admin: 01/28/18 15:42 Dose: 20 mg - Exam General: Alert, Oriented HEENT: Pupils Equal, Pupils Reactive, EOMI, Mucous Membr. Moist/[place] Lungs: Decreased Breath Sounds, Wheezing Cardiovascular: Irregular Rhythm GI/Abdominal Exam: Normal Bowel Sounds, Soft, Non-Tender, No Organomegaly, No Distention, No Abnormal Bruit, No Mass, Pelvis Stable Extremities: Normal Inspection, Normal Range of Motion, Non-Tender, No Pedal Edema, Normal Capillary Refill Peripheral Pulses: 1+: Radial (L), Radial (R) Skin: Warm, Dry, Intact Psy/Mental Status: Alert, Normal Affect, Normal Mood - Problem List Review Problem List Initiated/Reviewed/Updated: Yes - My Orders Last 24 Hours: My Active Orders 01/28/18 08:21 Consult to Physical Therapy [PT Evaluation and Treatment] [CONS] Routine 01/28/18 10:28 RT Evaluate for Home Oxygen [RC] Click to Edit 01/28/18 17:39 RT Sputum Induction [RC] Click to Edit 01/28/18 17:45 Levofloxacin/Dextrose 5%-Water [Levaquin in D5W 500 MG/100 ML] 500 mg Premix Bag 1 bag IV Q24H cefTRIAXone [Rocephin] 1 gm Sodium Chloride 0.9% [Normal Saline] 50 ml IV Q24H 01/28/18 23:02 Echo Comp w Cont [US] Routine 01/29/18 13:00 Warfarin [Coumadin] 5 mg PO Q72H - Plan Plan:: Assessment/Plan: #1. Broinchitis: Reported EF >55% She continues to cough. Will change the antibiotics and get a CXR in the Morning. #2. HTN: Will continue with med adjustment. BP good control. #3. Blindness #4. Urinary incontance: Cont with med. #5. Atrial fib, Chronic. #6. Hypoxcemia: Resting O2 sat of 87% which qualifies her of home O2. She is not doing well with no improvement have changed the meds.
[2018-01-28] MEDS: Azithromycin 250 MG Tab PO SCH (17:48)
[2018-01-28] MEDS: cefTRIAXone 1 GM in Sodium Chloride 0.9% 50 ML IV SCH (19:44)
[2018-01-28] MEDS: Levofloxacin/Dextrose 5%-Water 500 MG in Premix Bag 1 BAG IV SCH (20:54)
--- NOTE | 2018-01-29 08:51 | CR ---
Cardiomegaly. Pulmonary vasculature has decreased compared to prior examination. Trace pleural effusi on on the left or pleural thickening. Hazy density left medial lung base can indicate infiltrate or a telectasis. It is not appreciated on the lateral view. Recommend radiographic follow-up..
[2018-01-29] MEDS: Spironolactone 25 MG Tab PO SCH (09:00)
[2018-01-29] MEDS: Doxazosin 4 MG Tab PO SCH ×2 (09:00→20:11)
[2018-01-29] MEDS: Losartan 50 MG Tab PO SCH (09:00)
[2018-01-29] MEDS: Mirabegron 25 MG Tab Extended Release PO SCH (09:00)
[2018-01-29] MEDS: amLODIPine 5 MG Tab PO SCH (09:00)
[2018-01-29] MEDS: hydrALAZINE 25 MG Tab PO SCH ×3 (09:30→20:11)
[2018-01-29] MEDS: Furosemide 20 MG Tab PO SCH (09:30)
[2018-01-29] MEDS ORDERED: Warfarin 5 MG Tab PO SCH (13:00)
--- NOTE | 2018-01-29 13:59 | PCM.PN ---
- General Info Date of Service: 01/29/18 Admission Dx/Problem (Free Text): She is feeling better with minimal coughing. Much improved with the change in meds last evening. Functional Status: Reports: Pain Controlled - Review of Systems General: Reports: Weakness HEENT: Reports: No Symptoms Pulmonary: Reports: Shortness of Breath, Cough, Wheezing Cardiovascular: Reports: No Symptoms Gastrointestinal: Reports: No Symptoms Genitourinary: Reports: No Symptoms Musculoskeletal: Reports: No Symptoms Skin: Reports: No Symptoms Neurological: Reports: No Symptoms Psychiatric: Reports: No Symptoms - Patient Data Vitals - Most Recent: Last Vital Signs Temp 96.3 F 01/29/18 07:00 Pulse 66 01/29/18 07:00 Resp 20 01/29/18 07:00 BP 152/60 H 01/29/18 09:00 Pulse Ox 97 01/29/18 07:00 Weight - Most Recent: 127 lb 13.89 oz I&O - Last 24 Hours: Intake & Output 01/28/18 01/29/18 01/29/18 22:59 06:59 14:59 Intake Total 1230 860 Output Total 625 300 500 Balance 605 -300 360 Med Orders - Current: Current Medications Albuterol (Proventil Neb Soln) 2.5 mg NEB Q4H PRN PRN Reason: Shortness of Breath Last Admin: 01/27/18 10:44 Dose: 2.5 mg Amlodipine Besylate (Norvasc) 10 mg PO BEDTIME [facility] Digoxin (Lanoxin) 125 mcg PO DAILY@1300 [facility] Last Admin: 01/28/18 15:06 Dose: Not Given Doxazosin Mesylate (Cardura) 8 mg PO BID [facility] Last Admin: 01/29/18 09:00 Dose: 8 mg Furosemide (Lasix) 20 mg PO DAILY [facility] Last Admin: 01/29/18 09:30 Dose: 20 mg Hydralazine HCl (Apresoline) 25 mg PO TID [facility] Last Admin: 01/29/18 09:30 Dose: 25 mg Levofloxacin/Dextrose 500 mg/ (Premix) 100 mls @ 100 mls/hr IV Q24H [facility] Last Admin: 01/28/18 20:54 Dose: 100 mls/hr Ceftriaxone Sodium 1 gm/ (Sodium Chloride) 50 mls @ 100 mls/hr IV Q24H [facility] Last Admin: 01/28/18 19:44 Dose: 100 mls/hr Losartan Potassium (Cozaar) 100 mg PO DAILY [facility] Last Admin: 01/29/18 09:00 Dose: 100 mg Mirabegron (Myrbetriq) 50 mg PO DAILY [facility] Last Admin: 01/29/18 09:00 Dose: 50 mg Nebivolol (Bystolic) 40 mg PO DAILY [facility] Sodium Chloride (Saline Flush) 10 ml FLUSH ASDIRECTED PRN PRN Reason: Keep Vein Open Last Admin: 01/26/18 20:52 Dose: 10 ml Spironolactone (Aldactone) 25 mg PO DAILY [facility] Last Admin: 01/29/18 09:00 Dose: 25 mg Warfarin Sodium (Coumadin) 5 mg PO Q72H [facility] Warfarin Sodium (Coumadin) 7.5 mg PO DAILY@1300 [facility] Discontinued Medications Amlodipine Besylate (Norvasc) 5 mg PO DAILY [facility] Last Admin: 01/29/18 09:00 Dose: 5 mg Azithromycin (Zithromax) 250 mg PO QPM [facility] Stop: 01/29/18 17:01 Last Admin: 01/28/18 17:48 Dose: Not Given Carvedilol (Coreg) 3.125 mg PO DAILY [facility] Last Admin: 01/27/18 01:48 Dose: Not Given Carvedilol (Coreg) 0 mg PO ONETIME ONE Stop: 01/27/18 01:01 Last Admin: 01/27/18 01:03 Dose: 1.562 mg Carvedilol (Coreg) 1.5625 mg PO BIDMEALS [facility] Last Admin: 01/28/18 08:56 Dose: 1.5625 mg Furosemide (Lasix) 40 mg IVPUSH ONETIME ONE Stop: 01/26/18 20:13 Last Admin: 01/26/18 20:42 Dose: 40 mg Furosemide (Lasix) 20 mg PO ONETIME ONE Stop: 01/28/18 16:01 Last Admin: 01/28/18 15:42 Dose: 20 mg - Exam General: Alert, Oriented Lungs: Wheezing Cardiovascular: Irregular Rhythm GI/Abdominal Exam: Normal Bowel Sounds, Soft, Non-Tender, No Organomegaly, No Distention, No Abnormal Bruit, No Mass, Pelvis Stable Back Exam: Normal Inspection, Full Range of Motion Extremities: Normal Inspection, Normal Range of Motion, Non-Tender, No Pedal Edema, Normal Capillary Refill Peripheral Pulses: 1+: Radial (L), Radial (R) Skin: Warm, Dry, Intact - Problem List Review Problem List Initiated/Reviewed/Updated: Yes - My Orders Last 24 Hours: My Active Orders 01/28/18 17:00 Levofloxacin/Dextrose 5%-Water [Levaquin in D5W 500 MG/100 ML] 500 mg Premix Bag 1 bag IV Q24H [id number] [Rocephin] 1 gm Sodium Chloride 0.9% [Normal Saline] 50 ml IV Q24H 01/28/18 17:39 RT Sputum Induction [RC] Click to Edit 01/28/18 23:02 Echo Comp w Cont [US] Routine 01/29/18 13:00 Warfarin [Coumadin] 5 mg PO Q72H 01/29/18 13:47 INR,PT,PROTHROMBIN TIME [COAG] DAILY 01/29/18 14:00 Nebivolol [Bystolic] 40 mg PO DAILY 01/29/18 21:00 amLODIPine [Norvasc] 10 mg PO BEDTIME 01/30/18 13:47 INR,PT,PROTHROMBIN TIME [COAG] DAILY 01/31/18 13:47 INR,PT,PROTHROMBIN TIME [COAG] DAILY 02/01/18 13:47 INR,PT,PROTHROMBIN TIME [COAG] DAILY 02/02/18 13:47 INR,PT,PROTHROMBIN TIME [COAG] DAILY 02/03/18 13:47 INR,PT,PROTHROMBIN TIME [COAG] DAILY 02/04/18 13:47 INR,PT,PROTHROMBIN TIME [COAG] DAILY - Plan Plan:: Assessment/Plan: #1. Broinchitis: Reported EF >55% She continues to cough. CXR shows possible imfiltrate which fits clinically. She is better after the change in meds yesterday. Will continue with IV meds and repeat the CXR in 2 days. #2. HTN: Will continue with med adjustment. BP is elevated so will put back on the meds as she was taking at home. #3. Blindness #4. Urinary incontance: Cont with med. #5. Atrial fib, Chronic. #6. Hypoxcemia: Resting O2 sat of 87% which qualifies her of home O2. She is not doing well with no improvement have changed the meds.
[2018-01-29] MEDS: Digoxin 125 MCG Tab PO SCH (14:25)
[2018-01-29] MEDS: Levofloxacin/Dextrose 5%-Water 500 MG in Premix Bag 1 BAG IV SCH (16:27)
[2018-01-29] MEDS: cefTRIAXone 1 GM in Sodium Chloride 0.9% 50 ML IV SCH (17:50)
[2018-01-29] MEDS: amLODIPine 10 MG Tab PO SCH (20:10)
[2018-01-30] MEDS: hydrALAZINE 25 MG Tab PO SCH ×3 (08:30→20:58)
[2018-01-30] MEDS: Spironolactone 25 MG Tab PO SCH (08:30)
[2018-01-30] MEDS: Losartan 50 MG Tab PO SCH (08:32)
[2018-01-30] MEDS: Furosemide 20 MG Tab PO SCH (08:32)
[2018-01-30] MEDS: Doxazosin 4 MG Tab PO SCH ×2 (08:32→20:58)
[2018-01-30] MEDS: Mirabegron 25 MG Tab Extended Release PO SCH (08:33)
[2018-01-30] MEDS: Warfarin 2.5 MG Tab PO SCH (14:02)
[2018-01-30] MEDS: Digoxin 125 MCG Tab PO SCH (14:03)
[2018-01-30] MEDS: cefTRIAXone 1 GM in Sodium Chloride 0.9% 50 ML IV SCH (16:28)
[2018-01-30] MEDS: Levofloxacin/Dextrose 5%-Water 500 MG in Premix Bag 1 BAG IV SCH (16:30)
--- NOTE | 2018-01-30 18:56 | PCM.PN ---
- General Info Date of Service: 01/30/18 Functional Status: Reports: Pain Controlled - Review of Systems General: Reports: Fatigue HEENT: Reports: No Symptoms Pulmonary: Reports: Cough, Wheezing Cardiovascular: Reports: No Symptoms Gastrointestinal: Reports: No Symptoms Genitourinary: Reports: No Symptoms Musculoskeletal: Reports: No Symptoms Skin: Reports: No Symptoms Neurological: Reports: No Symptoms Psychiatric: Reports: No Symptoms - Patient Data Vitals - Most Recent: Last Vital Signs Temp 98.2 F 01/30/18 18:14 Pulse 49 L 01/30/18 18:14 Resp 18 01/30/18 18:14 BP 129/97 H 01/30/18 18:14 Pulse Ox 95 01/30/18 18:14 Weight - Most Recent: 128 lb 4 oz I&O - Last 24 Hours: Intake & Output 01/30/18 01/30/18 01/30/18 06:59 14:59 22:59 Intake Total 840 800 Output Total 1000 400 Balance -1000 840 400 Lab Results Last 24 Hours: Laboratory Results - last 24 hr 01/30/18 Range/Units 05:49 PT 16.5 H (9.5-12.0) sec INR 1.52 H (0.80-1.20) Med Orders - Current: Current Medications Albuterol (Proventil Neb Soln) 2.5 mg NEB Q4H PRN PRN Reason: Shortness of Breath Last Admin: 01/27/18 10:44 Dose: 2.5 mg Amlodipine Besylate (Norvasc) 10 mg PO BEDTIME [facility] Last Admin: 01/29/18 20:10 Dose: 10 mg Digoxin (Lanoxin) 125 mcg PO DAILY@1300 [facility] Last Admin: 01/30/18 14:03 Dose: 125 mcg Doxazosin Mesylate (Cardura) 8 mg PO BID [facility] Last Admin: 01/30/18 08:32 Dose: 8 mg Furosemide (Lasix) 20 mg PO DAILY [facility] Last Admin: 01/30/18 08:32 Dose: 20 mg Hydralazine HCl (Apresoline) 25 mg PO TID [facility] Last Admin: 01/30/18 14:03 Dose: 25 mg Levofloxacin/Dextrose 500 mg/ (Premix) 100 mls @ 100 mls/hr IV Q24H [facility] Last Admin: 01/30/18 16:30 Dose: 100 mls/hr Ceftriaxone Sodium 1 gm/ (Sodium Chloride) 50 mls @ 100 mls/hr IV Q24H [facility] Last Admin: 01/30/18 16:28 Dose: 100 mls/hr Losartan Potassium (Cozaar) 100 mg PO DAILY [facility] Last Admin: 01/30/18 08:32 Dose: 100 mg Mirabegron (Myrbetriq) 50 mg PO DAILY [facility] Last Admin: 01/30/18 08:33 Dose: 50 mg Nebivolol (Bystolic) 20 mg PO DAILY [facility] Last Admin: 01/30/18 08:30 Dose: 20 mg Sodium Chloride (Saline Flush) 10 ml FLUSH ASDIRECTED PRN PRN Reason: Keep Vein Open Last Admin: 01/26/18 20:52 Dose: 10 ml Spironolactone (Aldactone) 25 mg PO DAILY [facility] Last Admin: 01/30/18 08:30 Dose: 25 mg Warfarin Sodium (Coumadin) 5 mg PO Q72H [facility] Warfarin Sodium (Coumadin) 7.5 mg PO Q72H [facility] Last Admin: 01/30/18 14:02 Dose: 7.5 mg Warfarin Sodium (Coumadin) 7.5 mg PO Q72H [facility] Discontinued Medications Amlodipine Besylate (Norvasc) 5 mg PO DAILY [facility] Last Admin: 01/29/18 09:00 Dose: 5 mg Azithromycin (Zithromax) 250 mg PO QPM [facility] Stop: 01/29/18 17:01 Last Admin: 01/28/18 17:48 Dose: Not Given Carvedilol (Coreg) 3.125 mg PO DAILY [facility] Last Admin: 01/27/18 01:48 Dose: Not Given Carvedilol (Coreg) 0 mg PO ONETIME ONE Stop: 01/27/18 01:01 Last Admin: 01/27/18 01:03 Dose: 1.562 mg Carvedilol (Coreg) 1.5625 mg PO BIDMEALS [facility] Last Admin: 01/28/18 08:56 Dose: 1.5625 mg Furosemide (Lasix) 40 mg IVPUSH ONETIME ONE Stop: 01/26/18 20:13 Last Admin: 01/26/18 20:42 Dose: 40 mg Furosemide (Lasix) 20 mg PO ONETIME ONE Stop: 01/28/18 16:01 Last Admin: 01/28/18 15:42 Dose: 20 mg Nebivolol (Bystolic) 40 mg PO DAILY [facility] Last Admin: 01/29/18 15:33 Dose: 40 mg Warfarin Sodium (Coumadin) 7.5 mg PO DAILY@1300 [facility] Stop: 01/31/18 13:01 - Exam General: Alert, Oriented HEENT: Pupils Equal, Pupils Reactive, EOMI, Mucous Membr. Moist/[place] Neck: Supple Lungs: Clear to Auscultation, Normal Respiratory Effort Cardiovascular: Regular Rate, Regular Rhythm Back Exam: Normal Inspection, Full Range of Motion Extremities: Normal Inspection, Normal Range of Motion, Non-Tender, No Pedal Edema, Normal Capillary Refill Peripheral Pulses: 1+: Radial (L), Radial (R) Skin: Warm, Dry, Intact Psy/Mental Status: Alert, Normal Affect, Normal Mood - Problem List Review Problem List Initiated/Reviewed/Updated: Yes - My Orders Last 24 Hours: My Active Orders 01/29/18 21:00 amLODIPine [Norvasc] 10 mg PO BEDTIME 01/30/18 09:00 Nebivolol [Bystolic] 20 mg PO DAILY 01/30/18 13:00 Warfarin [Coumadin] 7.5 mg PO Q72H 01/31/18 05:00 INR,PT,PROTHROMBIN TIME [COAG] DAILY 01/31/18 13:00 Warfarin [Coumadin] 7.5 mg PO Q72H 02/01/18 05:00 INR,PT,PROTHROMBIN TIME [COAG] DAILY 02/02/18 05:00 INR,PT,PROTHROMBIN TIME [COAG] DAILY 02/03/18 05:00 INR,PT,PROTHROMBIN TIME [COAG] DAILY 02/04/18 05:00 INR,PT,PROTHROMBIN TIME [COAG] DAILY - Plan Plan:: Assessment/Plan: #1. Broinchitis: Reported EF >55% She continues to cough but much improved.. CXR shows possible infiltrate which fits clinically. She is better after the change in meds yesterday. Will continue with IV meds and repeat the CXR in 2 days. #2. HTN: Will continue with med adjustment. Changed Bystolic this morning as pulse was low #3. Blindness #4. Urinary incontance: Cont with med. #5. Atrial fib, Chronic. Restarted coumadin #6. Hypoxcemia: Resting O2 sat of improving with exercise.
[2018-01-30] MEDS: amLODIPine 10 MG Tab PO SCH (20:59)
[2018-01-31] MEDS: Doxazosin 4 MG Tab PO SCH (08:04)
[2018-01-31] MEDS: Mirabegron 25 MG Tab Extended Release PO SCH (08:04)
[2018-01-31] MEDS: Spironolactone 25 MG Tab PO SCH (08:05)
[2018-01-31] MEDS: Furosemide 20 MG Tab PO SCH (08:05)
[2018-01-31] MEDS: hydrALAZINE 25 MG Tab PO SCH (08:05)
[2018-01-31] MEDS: Losartan 50 MG Tab PO SCH (08:05)
--- NOTE | 2018-01-31 11:17 | CR ---
Cardiomegaly. Emphysematous change. No pneumothorax. Kyphosis. Interstitial thickening appears mild a nd slightly decreased compared to 01/28/2018. Slight improved aeration within the medial left lung bas e. There does remain streaky density within the right upper lobe medially which was evident on prior chest x-rays and may relate to scarring.
--- NOTE | 2018-01-31 11:22 | PCM.PN ---
- General Info Date of Service: 01/31/18 Subjective Update: She still marquez a cough but improving with coughing much improved. She she is using oxygen. Functional Status: Reports: Pain Controlled - Review of Systems General: Reports: Weakness HEENT: Reports: No Symptoms Pulmonary: Reports: Shortness of Breath, Cough Cardiovascular: Reports: No Symptoms Gastrointestinal: Reports: No Symptoms Genitourinary: Reports: No Symptoms Musculoskeletal: Reports: No Symptoms Skin: Reports: No Symptoms Neurological: Reports: No Symptoms Psychiatric: Reports: No Symptoms - Patient Data Vitals - Most Recent: Last Vital Signs Temp 97.9 F 01/31/18 07:02 Pulse 68 01/31/18 07:02 Resp 17 01/31/18 07:02 BP 142/61 H 01/31/18 07:02 Pulse Ox 96 01/31/18 07:02 Weight - Most Recent: 128 lb 9.28 oz I&O - Last 24 Hours: Intake & Output 01/30/18 01/31/18 01/31/18 22:59 06:59 14:59 Intake Total 800 240 600 Output Total 650 150 220 Balance 150 90 380 Lab Results Last 24 Hours: Laboratory Results - last 24 hr 01/31/18 Range/Units 05:11 PT 15.5 H (9.5-12.0) sec INR 1.43 H (0.80-1.20) Med Orders - Current: Current Medications Albuterol (Proventil Neb Soln) 2.5 mg NEB Q4H PRN PRN Reason: Shortness of Breath Last Admin: 01/27/18 10:44 Dose: 2.5 mg Amlodipine Besylate (Norvasc) 10 mg PO BEDTIME [facility] Last Admin: 01/30/18 20:59 Dose: 10 mg Digoxin (Lanoxin) 125 mcg PO DAILY@1300 [facility] Last Admin: 01/30/18 14:03 Dose: 125 mcg Doxazosin Mesylate (Cardura) 8 mg PO BID [facility] Last Admin: 01/31/18 08:04 Dose: 8 mg Furosemide (Lasix) 20 mg PO DAILY [facility] Last Admin: 01/31/18 08:05 Dose: 20 mg Hydralazine HCl (Apresoline) 25 mg PO TID [facility] Last Admin: 01/31/18 08:05 Dose: 25 mg Levofloxacin/Dextrose 500 mg/ (Premix) 100 mls @ 100 mls/hr IV Q24H [facility] Last Admin: 01/30/18 16:30 Dose: 100 mls/hr Ceftriaxone Sodium 1 gm/ (Sodium Chloride) 50 mls @ 100 mls/hr IV Q24H [facility] Last Admin: 01/30/18 16:28 Dose: 100 mls/hr Losartan Potassium (Cozaar) 100 mg PO DAILY [facility] Last Admin: 01/31/18 08:05 Dose: 100 mg Mirabegron (Myrbetriq) 50 mg PO DAILY [facility] Last Admin: 01/31/18 08:04 Dose: 50 mg Nebivolol (Bystolic) 20 mg PO DAILY [facility] Last Admin: 01/31/18 08:05 Dose: 20 mg Sodium Chloride (Saline Flush) 10 ml FLUSH ASDIRECTED PRN PRN Reason: Keep Vein Open Last Admin: 01/26/18 20:52 Dose: 10 ml Spironolactone (Aldactone) 25 mg PO DAILY [facility] Last Admin: 01/31/18 08:05 Dose: 25 mg Warfarin Sodium (Coumadin) 5 mg PO Q72H [facility] Warfarin Sodium (Coumadin) 7.5 mg PO Q72H [facility] Last Admin: 01/30/18 14:02 Dose: 7.5 mg Warfarin Sodium (Coumadin) 7.5 mg PO Q72H [facility] Discontinued Medications Amlodipine Besylate (Norvasc) 5 mg PO DAILY [facility] Last Admin: 01/29/18 09:00 Dose: 5 mg Azithromycin (Zithromax) 250 mg PO QPM [facility] Stop: 01/29/18 17:01 Last Admin: 01/28/18 17:48 Dose: Not Given Carvedilol (Coreg) 3.125 mg PO DAILY [facility] Last Admin: 01/27/18 01:48 Dose: Not Given Carvedilol (Coreg) 0 mg PO ONETIME ONE Stop: 01/27/18 01:01 Last Admin: 01/27/18 01:03 Dose: 1.562 mg Carvedilol (Coreg) 1.5625 mg PO BIDMEALS [facility] Last Admin: 01/28/18 08:56 Dose: 1.5625 mg Furosemide (Lasix) 40 mg IVPUSH ONETIME ONE Stop: 01/26/18 20:13 Last Admin: 01/26/18 20:42 Dose: 40 mg Furosemide (Lasix) 20 mg PO ONETIME ONE Stop: 01/28/18 16:01 Last Admin: 01/28/18 15:42 Dose: 20 mg Nebivolol (Bystolic) 40 mg PO DAILY [facility] Last Admin: 01/29/18 15:33 Dose: 40 mg Warfarin Sodium (Coumadin) 7.5 mg PO DAILY@1300 [facility] Stop: 01/31/18 13:01 - Exam General: Alert, Oriented HEENT: Other (she has decreased vision secondary to Macular degeneration) Neck: Supple Lungs: Clear to Auscultation, Normal Respiratory Effort Cardiovascular: Irregular Rhythm GI/Abdominal Exam: Normal Bowel Sounds, Soft, Non-Tender, No Organomegaly, No Distention, No Abnormal Bruit, No Mass, Pelvis Stable Back Exam: Normal Inspection, Full Range of Motion Extremities: Normal Inspection, Normal Range of Motion, Non-Tender, No Pedal Edema, Normal Capillary Refill Peripheral Pulses: 1+: Radial (L), Radial (R) Skin: Warm, Dry, Intact Neurological: No New Focal Deficit Psy/Mental Status: Alert, Normal Affect, Normal Mood - Problem List Review Problem List Initiated/Reviewed/Updated: Yes - My Orders Last 24 Hours: My Active Orders 01/30/18 13:00 Warfarin [Coumadin] 7.5 mg PO Q72H 01/31/18 08:58 CXR [Chest 2V] [CR] Routine 01/31/18 13:00 Warfarin [Coumadin] 7.5 mg PO Q72H 02/01/18 05:00 INR,PT,PROTHROMBIN TIME [COAG] DAILY 02/02/18 05:00 INR,PT,PROTHROMBIN TIME [COAG] DAILY 02/03/18 05:00 INR,PT,PROTHROMBIN TIME [COAG] DAILY 02/04/18 05:00 INR,PT,PROTHROMBIN TIME [COAG] DAILY - Plan Plan:: Assessment/Plan: #1. Pneumonia: Reported EF >55% She continues to cough but much improved.. CXR shows improvement over yesterday. Her cough has improved and I feel medically stable to go to the NH with antibiotics. #2. HTN: Will continue with meds. 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 #5. Atrial fib, Chronic. Continue with coumadin. #6. Hypoxcemia: Resting O2 sat of improving with exercise.
--- NOTE | 2018-01-31 11:39 | PCM.DCSUM1 ---
Discharge Summary - Hospital Course HPI Initial Comments: Admitted with a problem of shortness of breath looking like in CHF. She had dypsnea with minimal exertion and breathing better when sitting up rather than laying down. AThe onset was over 1-2 weeks. - Discharge Data Discharge Date: 01/31/18 Discharge Disposition: DC/[facility] to [facility] Condition: Fair - Patient Summary/Data Consults: Consultations 01/28/18 08:21 Consult to Physical Therapy [PT Evaluation and Treatment] [CONS] Routine Please Evaluate and Treat. PT Reason for Consult: strenghting Pending Discharge: No Discharge Disposition: Home This query below is only for informational purposes and is not editable. Admission Diagnosis/Problem: CHF, Congestive heart failure Hospital Course: Echocardiogram showed EF of over 50% (report still pending). CXR showed an infiltrate and treated with Rocephin and Levaquin and made improvement while in the hospital. - Patient Instructions Diet: Heart Healthy Diet Activity: As Tolerated - Discharge Plan Prescriptions/Med Rec: Cefadroxil 500 mg PO BID 7 Days #14 capsule Levofloxacin [Levaquin] 500 mg PO Q48H 7 Days #7 tab Home Medications: Home Meds Digoxin [Lanoxin] 125 mcg PO DAILY 06/23/14 [History] MV-Mn/Iron/FA/Herbal Cmplx#190 [Vitamin D3 Complete Caplet] 1 tab PO DAILY 01/25 [History] Vitamin E (Dl,Tocopheryl Acet) [Vitamin E] 200 unit PO DAILY 01/25/18 [History] Warfarin [Coumadin] 5 mg PO ASDIRECTED 01/25/18 [History] Warfarin [Coumadin] 7.5 mg PO ASDIRECTED 01/25/18 [History] Albuterol [IJD: Albuterol] 2.5 mg NEB Q4H PRN nebule 01/31/18 [Rx] Cefadroxil 500 mg PO BID 7 Days #14 capsule 01/31/18 [Rx] Doxazosin [Cardura] 8 mg PO BID tablet 01/31/18 [Rx] Furosemide [Lasix] 20 mg PO DAILY tablet 01/31/18 [Rx] Levofloxacin [Levaquin] 500 mg PO Q48H 7 Days #7 tab 01/31/18 [Rx] Losartan [Cozaar] 100 mg PO DAILY tablet 01/31/18 [Rx] Mirabegron [Myrbetriq] 50 mg PO DAILY tab.er 01/31/18 [Rx] Nebivolol [Bystolic] 20 mg PO DAILY tablet 01/31/18 [Rx] Spironolactone [Aldactone] 25 mg PO DAILY tablet 01/31/18 [Rx] hydrALAZINE [Apresoline] 25 mg PO TID tablet 01/31/18 [Rx] Forms: ED Department Discharge Referrals: Waldo Barrientos Sr, MD [Primary Care Provider] - - Discharge Summary/Plan Comment Discharge Summary/Plan Comment: Assessment/Plan: #1. Pneumonia: Reported EF >55% She continues to cough but much improved.. CXR shows improvement over yesterday. Her cough has improved and I feel medically stable to go to the [place] with antibiotics. #2. HTN: Will continue with meds. 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 #5. Atrial fib, Chronic. Continue with coumadin. #6. Hypoxcemia: Resting O2 sat of improving with exercise. - General Info Functional Status: Reports: Pain Controlled - Review of Systems General: Reports: Weakness, Fatigue HEENT: Reports: Visual Changes Pulmonary: Reports: Shortness of Breath, Cough Cardiovascular: Reports: Dyspnea on Exertion Gastrointestinal: Reports: No Symptoms Genitourinary: Reports: No Symptoms Musculoskeletal: Reports: No Symptoms Skin: Reports: No Symptoms Neurological: Reports: No Symptoms Psychiatric: Reports: No Symptoms - Patient Data Vitals - Most Recent: Last Vital Signs Temp 99.7 F 01/31/18 11:29 Pulse 72 01/31/18 11:29 Resp 16 01/31/18 11:29 BP 138/78 01/31/18 11:29 Pulse Ox 95 01/31/18 11:29 Weight - Most Recent: 128 lb 9.28 oz I&O - Last 24 hours: Intake & Output 01/30/18 01/31/18 01/31/18 22:59 06:59 14:59 Intake Total 800 240 600 Output Total 650 150 220 Balance 150 90 380 Lab Results - Last 24 hrs: Laboratory Results - last 24 hr 01/31/18 Range/Units 05:11 PT 15.5 H (9.5-12.0) sec INR 1.43 H (0.80-1.20) Med Orders - Current: Current Medications Albuterol (Proventil Neb Soln) 2.5 mg NEB Q4H PRN PRN Reason: Shortness of Breath Last Admin: 01/27/18 10:44 Dose: 2.5 mg Amlodipine Besylate (Norvasc) 10 mg PO BEDTIME COUNT INCLUDES THE [facility] Last Admin: 01/30/18 20:59 Dose: 10 mg Digoxin (Lanoxin) 125 mcg PO DAILY@1300 COUNT INCLUDES THE [facility] Last Admin: 01/30/18 14:03 Dose: 125 mcg Doxazosin Mesylate (Cardura) 8 mg PO BID COUNT INCLUDES THE [facility] Last Admin: 01/31/18 08:04 Dose: 8 mg Furosemide (Lasix) 20 mg PO DAILY COUNT INCLUDES THE [facility] Last Admin: 01/31/18 08:05 Dose: 20 mg Hydralazine HCl (Apresoline) 25 mg PO TID COUNT INCLUDES THE [facility] Last Admin: 01/31/18 08:05 Dose: 25 mg Levofloxacin/Dextrose 500 mg/ (Premix) 100 mls @ 100 mls/hr IV Q24H COUNT INCLUDES THE [facility] Last Admin: 01/30/18 16:30 Dose: 100 mls/hr Ceftriaxone Sodium 1 gm/ (Sodium Chloride) 50 mls @ 100 mls/hr IV Q24H COUNT INCLUDES THE [facility] Last Admin: 01/30/18 16:28 Dose: 100 mls/hr Losartan Potassium (Cozaar) 100 mg PO DAILY COUNT INCLUDES THE [facility] Last Admin: 01/31/18 08:05 Dose: 100 mg Mirabegron (Myrbetriq) 50 mg PO DAILY COUNT INCLUDES THE [facility] Last Admin: 01/31/18 08:04 Dose: 50 mg Nebivolol (Bystolic) 20 mg PO DAILY COUNT INCLUDES THE [facility] Last Admin: 01/31/18 08:05 Dose: 20 mg Sodium Chloride (Saline Flush) 10 ml FLUSH ASDIRECTED PRN PRN Reason: Keep Vein Open Last Admin: 01/26/18 20:52 Dose: 10 ml Spironolactone (Aldactone) 25 mg PO DAILY COUNT INCLUDES THE [facility] Last Admin: 01/31/18 08:05 Dose: 25 mg Warfarin Sodium (Coumadin) 5 mg PO Q72H COUNT INCLUDES THE [facility] Warfarin Sodium (Coumadin) 7.5 mg PO Q72H COUNT INCLUDES THE [facility] Last Admin: 01/30/18 14:02 Dose: 7.5 mg Warfarin Sodium (Coumadin) 7.5 mg PO Q72H COUNT INCLUDES THE [facility] Discontinued Medications Amlodipine Besylate (Norvasc) 5 mg PO DAILY COUNT INCLUDES THE [facility] Last Admin: 01/29/18 09:00 Dose: 5 mg Azithromycin (Zithromax) 250 mg PO QPM COUNT INCLUDES THE [facility] Stop: 01/29/18 17:01 Last Admin: 01/28/18 17:48 Dose: Not Given Carvedilol (Coreg) 3.125 mg PO DAILY COUNT INCLUDES THE [facility] Last Admin: 01/27/18 01:48 Dose: Not Given Carvedilol (Coreg) 0 mg PO ONETIME ONE Stop: 01/27/18 01:01 Last Admin: 01/27/18 01:03 Dose: 1.562 mg Carvedilol (Coreg) 1.5625 mg PO BIDMEALS COUNT INCLUDES THE [facility] Last Admin: 01/28/18 08:56 Dose: 1.5625 mg Furosemide (Lasix) 40 mg IVPUSH ONETIME ONE Stop: 01/26/18 20:13 Last Admin: 01/26/18 20:42 Dose: 40 mg Furosemide (Lasix) 20 mg PO ONETIME ONE Stop: 01/28/18 16:01 Last Admin: 01/28/18 15:42 Dose: 20 mg Nebivolol (Bystolic) 40 mg PO DAILY COUNT INCLUDES THE [facility] Last Admin: 01/29/18 15:33 Dose: 40 mg Warfarin Sodium (Coumadin) 7.5 mg PO DAILY@1300 COUNT INCLUDES THE [facility] Stop: 01/31/18 13:01 - Exam General: Reports: Alert, Oriented Neck: Reports: Supple Lungs: Reports: Decreased Breath Sounds Cardiovascular: Reports: Irregular Rhythm GI/Abdominal Exam: Normal Bowel Sounds, Soft, Non-Tender, No Organomegaly, No Distention, No Abnormal Bruit, No Mass, Pelvis Stable Back Exam: Reports: Normal Inspection, Full Range of Motion Extremities: Normal Inspection, Normal Range of Motion, Non-Tender, No Pedal Edema, Normal Capillary Refill Skin: Reports: Warm, Dry, Intact Psy/Mental Status: Reports: Alert, Normal Affect, Normal Mood
[2018-01-31] MEDS: Digoxin 125 MCG Tab PO SCH (12:22)
[2018-01-31] MEDS: Warfarin 2.5 MG Tab PO SCH (12:23)
[2018-01-31] MEDS ORDERED: Warfarin 2.5 MG Tab PO SCH (13:00)
== END 2018-01-31 13:10 | DRG 193 ==
LOC: JP.ED 18:56 → JP.2SS 22:48
PROVIDERS: ADMIT Internal Medicine; ATTEND Internal Medicine
DX: J18.9 Pneumonia, unspecified organism (principal); I50.23 Acute on chronic systolic (congestive) heart failure; I48.91 Unspecified atrial fibrillation; E87.1 Hypo-osmolality and hyponatremia; D64.9 Anemia, unspecified; R09.02 Hypoxemia; I48.2 Chronic atrial fibrillation; I10 Essential (primary) hypertension; H35.30 Unspecified macular degeneration; R32 Unspecified urinary incontinence; Z88.0 Allergy status to penicillin; Z79.899 Other long term (current) drug therapy
CPT/HCPCS: 36415; 71045 ×2; 80048; 84484; 85027; 96374; 99285 ×2; J1940; J7050; 71046; 71046-26; 80162; 85025; 85610; 94640; 97162-GP; 97530-GP; A9270-GY; C8929; J0696; J1956

== ENCOUNTER 2018-05-03 16:42 | Emergency (ER) | payer MEDICARE, OTHER ==
--- NOTE | 2018-05-03 17:58 | EDM.PDOC ---
ED HPI GENERAL MEDICAL PROBLEM - General Chief Complaint: Lower Extremity Injury/Pain Stated Complaint: RIGHT KNEE PAIN Time Seen by Provider: 05/03/18 17:30 Source of Information: Reports: Patient, Family History Limitations: Reports: No Limitations - History of Present Illness INITIAL COMMENTS - FREE TEXT/NARRATIVE: 87-year-old female twisted her right knee while walking to the mailbox 5 days ago. She's had persistent pain since that time, saw her primary provider who did an ultrasound on the knee and it was negative. She doesn't feel she is improving, she is especially having problems bearing weight. She feels the pain is mostly behind the knee and the lateral. No significant bruising. Onset: Sudden Duration: Day(s): (5 days ago) Location: Reports: Lower Extremity, Right Severity: Moderate Associated Symptoms: Denies: Fever/Chills, Nausea/Vomiting, Shortness of Breath Right Knee Pain Score (Numeric/FACES): 10 - Related Data Allergies Allergy/AdvReac Type Severity Reaction Status Date / Time egg AdvReac Weakness Verified 01/26/18 22:25 gluten AdvReac Diarrhea Verified 01/26/18 22:25 Penicillins AdvReac Diarrhea Verified 01/26/18 22:25 Home Meds: Home Meds Digoxin [Lanoxin] 125 mcg PO DAILY 06/23/14 [History] MV-Mn/Iron/FA/Herbal Cmplx#190 [Vitamin D3 Complete Caplet] 1 tab PO DAILY 01/25 [History] Vitamin E (Dl,Tocopheryl Acet) [Vitamin E] 200 unit PO DAILY 01/25/18 [History] Warfarin [Coumadin] 5 mg PO ASDIRECTED 01/25/18 [History] Warfarin [Coumadin] 6 mg PO ASDIRECTED 01/25/18 [History] Albuterol [IJD: Albuterol] 2.5 mg NEB Q4H PRN nebule 01/31/18 [Rx] Cefadroxil 500 mg PO BID 7 Days #14 capsule 01/31/18 [Rx] Doxazosin [Cardura] 8 mg PO BID tablet 01/31/18 [Rx] Furosemide [Lasix] 20 mg PO DAILY tablet 01/31/18 [Rx] Levofloxacin [Levaquin] 500 mg PO Q48H 7 Days #7 tab 01/31/18 [Rx] Mirabegron [Myrbetriq] 50 mg PO DAILY tab.er 01/31/18 [Rx] Nebivolol [Bystolic] 20 mg PO DAILY tablet 01/31/18 [Rx] Spironolactone [Aldactone] 25 mg PO DAILY tablet 01/31/18 [Rx] hydrALAZINE [Apresoline] 25 mg PO TID tablet 01/31/18 [Rx] Hydrochlorothiazide 25 mg PO DAILY 05/03/18 [History] Losartan [Cozaar] 50 mg PO DAILY 05/03/18 [History] hydrALAZINE [Apresoline] 25 mg PO Q8H 05/03/18 [History] Past Medical History HEENT History: Reports: Cataract, Glaucoma, Hard of Hearing Cardiovascular History: Reports: Afib, Heart Failure, Hypertension, SOB on Exertion Respiratory History: Reports: Pneumonia, Recurrent Gastrointestinal History: Reports: Celiac Disease [employer] History: Reports: Musculoskeletal History: Reports: Arthritis Psychiatric History: Reports: Depression - Infectious Disease History Infectious Disease History: Reports: Chicken Pox - Past Surgical History HEENT Surgical History: Reports: Cataract Surgery GI Surgical History: Reports: Colonoscopy Social & Family History - Family History Family Medical History: Noncontributory - Tobacco Use Smoking Status *Q: Never Smoker Second Hand Smoke Exposure: No - Caffeine Use Caffeine Use: Reports: Coffee, Tea - Recreational Drug Use Recreational Drug Use: Yes Review of Systems - Review of Systems Review Of Systems: See Below Constitutional: Denies: Fever Respiratory: Denies: Shortness of Breath Cardiovascular: Denies: Chest Pain GI/Abdominal: Denies: Abdominal Pain Musculoskeletal: Reports: Other (Significant knee pain is her main complaint) Skin: Denies: Bruising Neurological: Denies: Paresthesia ED EXAM, GENERAL - Physical Exam Exam: See Below Exam Limited By: No Limitations General Appearance: Alert, No Apparent Distress Respiratory/Chest: No Respiratory Distress Extremities: Other (Exam is otherwise limited to the lower extremities. She has tense peripheral edema which is symmetric from above the knees to the feet. The right knee appears to be slightly swollen compared to the left. On palpation she is tender over the proximal gastrocnemius and popliteal area, with some pain laterally with varus stressing to the knee. She has no medial knee tenderness to palpation or with valgus stressing.) Course - Vital Signs Last Recorded V/S: Last Vital Signs Temp 98.2 F 05/03/18 18:29 Pulse 61 05/03/18 18:29 Resp 20 05/03/18 18:29 BP 150/48 H 05/03/18 18:29 Pulse Ox 94 L 05/03/18 18:29 - Orders/Labs/Meds Orders: Active Orders 24 hr Category Date Time Status Knee 3V Rt [CR] Stat Exams 05/03/18 17:27 Taken - Re-Assessments/Exams Free Text/Narrative Re-Assessment/Exam: 05/03/18 17:56 An x-ray of the knee was obtained, showed no fracture. A four-inch Jim wrap was applied to the knee which felt supported. She'll be supplied with 15 tramadol to take one every 3-4 hours along with her ibuprofen, and recheck with Dr. Barrientos next Sunday as scheduled. Departure - Departure Time of Disposition: 18:28 Disposition: Home, Self-Care 01 Condition: Good Clinical Impression: Sprain of right knee Qualifiers: Encounter type: initial encounter Involved ligament of knee: lateral collateral ligament Qualified Code(s): S83.421A - Sprain of lateral collateral ligament of right knee, initial encounter - Discharge Information Instructions: Knee Sprain, Adult, [id number] Referrals: Waldo Barrientos Sr, MD [Primary Care Provider] - Forms: ED Department Discharge Care Plan Goals: Continue wrapping knee for support and increase activity as tolerated. Ibuprofen should help with pain, add tramadol 1 every 3-4 hours as needed for extra pain control. Recheck with Dr. Barrientos sunday as scheduled. - My Orders Last 24 Hours: My Active Orders 05/03/18 17:27 Knee 3V Rt [CR] Stat - Assessment/Plan Last 24 Hours: My Active Orders 05/03/18 17:27 Knee 3V Rt [CR] Stat
== END 2018-05-03 18:20 | disposition home or self-care (01) ==
LOC: JP.ED 16:42
DX: S83.421A Sprain of lateral collateral ligament of right knee, initial encounter (principal); I11.0 Hypertensive heart disease with heart failure; I50.9 Heart failure, unspecified; Z91.012 Allergy to eggs; Z88.0 Allergy status to penicillin; Z88.8 Allergy status to other drugs, medicaments and biological substances; Z79.01 Long term (current) use of anticoagulants; Z79.899 Other long term (current) drug therapy; X50.9XXA Other and unspecified overexertion or strenuous movements or postures, initial encounter
CPT/HCPCS: 73562-RT; 99283; 99284